=== PATIENT | male | born 1990 | race Two or more races ===

== ENCOUNTER 2024-03-04 10:37 | Emergency (ER) | payer OTHER, SELFPAY ==
[2024-03-04] VITALS (7 sets, daily range): BP systolic 113–130; BP diastolic 73–85; PULSE 63–80; RESP 16–20; TEMP 36.8; O2SAT 97–99; BMI 22.1; BMI 29.2
--- NOTE | 2024-03-04 10:53 | XR_ITS ---
FINAL REPORT CLINICAL HISTORY: injuried 2 w ago, fall onto wood COMPARISON: None FINDINGS: RIGHT ANKLE 3 views of the right ankle were obtained. There is no acute fracture or dislocation. The mortise is intact. Visualized joint spaces are normally aligned. Soft tissues are unremarkable. IMPRESSION: No acute bony abnormality. Reviewed, Interpreted and Dictated by Cezar Damian MD Transcribed by Claudia Hernandez Authenticated and [facility]
--- NOTE | 2024-03-04 10:53 | XR_ITS ---
FINAL REPORT CLINICAL HISTORY: injuried 2 w ago, fall onto wood COMPARISON: None FINDINGS: Two views of the right tibia/fibula were obtained. There is no acute fracture or dislocation. The joint spaces are intact. There is no soft tissue abnormality. IMPRESSION: No acute process. Reviewed, Interpreted and Dictated by Cezar Damian MD Transcribed by Claudia Hernandez Authenticated and [facility]
--- NOTE | 2024-03-04 11:18 | ED_ITS ---
Discharge Plan Disposition Patient Disposition: Home, Self-Care Condition: Good Prescriptions Prescriptions: New meloxicam 15 mg tablet 15 mg PO DAILY PRN (Reason: pain) 14 Days Qty: 14 0RF Referrals Follow up/Referrals: Provider,Referral, MD [Primary Care Provider] - See instructions Activity Restrictions/Add. Instructions Additional Instructions/Restrictions: I have written a prescription for a pain medication that will also reduce inflammation. Please use a Malachi wrap on your leg for compression. Please return with any new or worsening symptoms. Clinical Impressions Clinical Impression: Hematoma Stand Alone Forms Stand Alone Forms: Work/School Release Instructions Patient Instructions: DI for Laceration Repair Print Language Print Language: Maori Discharge ED Provider: Larry Echeverria Adult HPI General Chief complaint: Wound/Laceration Stated complaint: WC 02/19/24, rt ankle/leg inj Time Seen by Provider: 03/04/24 10:44 Mode of Arrival: Ambulatory Source of Information: Patient Limitations: No Limitations Description of Symptoms (Recalled from ER Triage Doc. by RN): pt fell on piece on wood two weeks ago while at work, and today has a swollen lump on front of right lower leg History of Present Illness HPI narrative: Patient presents for evaluation of blunt injuries sustained to right leg several days ago. He has been able to bear weight. Denies any concern for splinter. No pain elsewhere. No numbness or tingling. Please note that above description of symptoms, in this electronic medical record under categorization of recalled from ER triage doctor by RN are reflective of an initial nursing assessment, however, is not reflective of my full history and physical exam that was personally taken and clarified. Consequentially, this preceding description of symptoms, which may include the patient's categorized chief complaint in the EMR, do not reflect my personal clinical impression, and the ultimate description of history of present illness and patient stated complaints should be deferred to this section of the note. Unless stated otherwise or congruent with this section of the note, additional signs, symptoms, or incongruence should be interpreted as inaccurate with my clinical impression. Related Data Previous Rx's ?Medication ?Instructions ?Recorded meloxicam 15 mg tablet 15 mg PO DAILY PRN pain 2 weeks 03/04/24 #14 tabs Allergies Allergy/AdvReac Type Severity Reaction Status Date / Time No Known Allergies Allergy Verified 03/04/24 10:52 [facility] Disclaimer: The information contained in this section may have been updated after the patient was seen, as this information can be updated by other users. Social History Smoking Status: Current every day smoker alcohol intake: former current occupational status: other ROS Obtained: Yes other As per HPI Physical Exam General General appearance: alert and in no apparent distress Head Head exam: atraumatic and normocephalic Eye Eye exam: Present normal appearance Neck Neck exam: Present normal inspection Chest Chest inspection: Present normal inspection and symmetric chest wall rise Respiratory Respiratory exam: Present normal lung sounds bilaterally; Absent respiratory distress Cardiovascular Cardiovascular exam: Present regular rate and normal rhythm Abdominal Exam Abdominal exam: Present soft Neurological Exam Neurological exam: Present alert and oriented X3 Psychiatric Psychiatric exam: Present normal affect and normal mood Skin Skin exam: Present warm and dry Other Other exam information: Bruising to ventral aspect of right leg, no deformity, distally neurovascularly intact Medical Decision Making Medical Records Medical records reviewed: Yes I reviewed the patient's medical records. Screening: Per USPSTF and CDC recommendations, given the prevalence of disease in our region, it is our hospital?s policy to screen for HIV and viral Hepatitis for all patients aged 18 and over and those with ongoing risk factors. Daniel Inquiry Pt receiving controlled substance: No Vital Signs: 03/04/24 10:39 03/04/24 11:30 03/04/24 12:00 Temperature 98.2 F Temperature Source Oral Pulse Rate 63 69 Pulse Rate [Right Radial] 70 Respiratory Rate 20 Blood Pressure 113/73 119/84 Blood Pressure [Right Arm] 130/85 Blood Pressure Mean Blood Pressure Mean [Right Arm] 100 Blood Pressure Source 02 Sat by Pulse Oximetry 98 97 99 Oxygen Delivery Method Room Air 03/04/24 12:30 03/04/24 13:35 03/04/24 14:00 Temperature Temperature Source Pulse Rate 80 71 69 Pulse Rate [Right Radial] Respiratory Rate Blood Pressure 125/81 116/79 117/78 Blood Pressure [Right Arm] Blood Pressure Mean 103 91 86 Blood Pressure Mean [Right Arm] Blood Pressure Source 02 Sat by Pulse Oximetry 99 99 98 Oxygen Delivery Method Room Air Room Air Room Air 03/04/24 14:07 Temperature 98.2 F Temperature Source Oral Pulse Rate 73 Pulse Rate [Right Radial] Respiratory Rate 16 Blood Pressure 117/78 Blood Pressure [Right Arm] Blood Pressure Mean Blood Pressure Mean [Right Arm] Blood Pressure Source Automatic Cuff 02 Sat by Pulse Oximetry Oxygen Delivery Method Room Air Orders (Tests/Meds): ORDERS Category Date Time Status XR ankle RT min 3V Stat Exams 03/04/24 10:53 Completed XR tibia fibula RT 2V Stat Exams 03/04/24 10:53 Completed Medical Decision Narrative: Patient with history and exam per above presenting for evaluation of leg injury Diagnoses considered include contusion, hematoma, fracture ED workup and treatment included: X-rays of tibia fibula and ankle Imaging was independently visualized and interpreted by me, significant for no acute findings Please refer to radiology report for full details. My clinical impression at this time is most consistent with contusion I discussed my clinical impression with patient and answered all questions. At this time, the evidence for any other entities in the differential is insufficient to warrant any further testing or ED observation. This was explained to the patient. The patient was advised that persistent or worsening symptoms require further evaluation. Critical Care Critical Care Time Critical Care Time: No
== END 2024-03-04 14:37 | disposition home or self-care (01) ==
PROVIDERS: Emergency Provider Emergency Medicine
DX: R22.41 Localized swelling, mass and lump, right lower limb (principal); T14.8XXA Other injury of unspecified body region, initial encounter; W19.XXXA Unspecified fall, initial encounter; Y93.89 Activity, other specified; Y92.9 Unspecified place or not applicable
CPT/HCPCS: 73590; 73610; 99283